=== PATIENT | male | born 1940 | race Caucasian/White ===

== ENCOUNTER → 2022-12-24 | Outpatient (CLI) | payer OTHER ==
[~2022-12-24] MED LIST: ASPIRIN81 M1 PO; LOSARTAN POTAS100 M1 PO; METOPROLOL SUCC25 M2 PO; NITROGLYCERIN0.4 MG SL; PANTOPRAZOLE SO40 MG PO; PLAVIX75 M1 PO; RANOLAZINE ER500 MG PO; TRAMADOL HCL50 MG PO
== END | disposition home or self-care (01) ==
LOC: CT 00:16
PROVIDERS: ATTEND Specialist
DX: J32.0 Chronic maxillary sinusitis (principal); J32.4 Chronic pansinusitis